=== PATIENT | female | born 1970 | race Caucasian/White ===

== ENCOUNTER 2024-02-27 08:22 | Inpatient (IN) ==
--- NOTE | 2023-12-16 15:44 | PAT Medication Instructions ---
Medication Instructions Date of Service December 16, 2023 Home Medications acetaminophen 500 mg tablet 1,000 mg PO QID PRN Pain bupropion HCl 300 mg 24 hr tablet, extended release 300 mg PO QAM buspirone 15 mg tablet 15 mg PO BID celecoxib 100 mg capsule (Celebrex) 100 mg PO BID cholecalciferol (vitamin D3) 50 mcg (2,000 unit) capsule (Vitamin D3) 100 mcg PO QAM cyanocobalamin (vitamin B-12) 1,000 mcg sublingual tablet 1,000 mcg sublingual QAM dicyclomine 20 mg tablet 20 mg PO TID PRN abdominal cramping duloxetine 20 mg capsule,delayed release 40 mg PO QAM duloxetine 60 mg capsule,delayed release 60 mg PO QAM levothyroxine 25 mcg tablet 25 mcg PO QAM omeprazole 40 mg capsule,delayed release 40 mg PO BID ondansetron 8 mg disintegrating tablet 8 mg PO TID PRN Nausea polyethylene glycol 3350 17 gram/dose oral powder (Miralax) 17 g PO QAM pregabalin 300 mg capsule 300 mg PO BID promethazine 12.5 mg tablet 12.5 mg PO TID PRN Nausea And Vomiting simvastatin 20 mg tablet 20 mg PO HS tizanidine 4 mg tablet 8 mg PO TID PRN muscle spasms trazodone 100 mg tablet 200 mg PO HS ASK your surgeon for instructions celecoxib 100 mg capsule (Celebrex) 100 mg PO BID DO NOT take the morning of surgery cholecalciferol (vitamin D3) 50 mcg (2,000 unit) capsule (Vitamin D3) 100 mcg PO QAM cyanocobalamin (vitamin B-12) 1,000 mcg sublingual tablet 1,000 mcg sublingual QAM dicyclomine 20 mg tablet 20 mg PO TID PRN abdominal cramping polyethylene glycol 3350 17 gram/dose oral powder (Miralax) 17 g PO QAM Take morning of surgery With a small sip of water, OTHERWISE NOTHING TO EAT OR DRINK AFTER MIDNIGHT: acetaminophen 500 mg tablet 1,000 mg PO QID PRN Pain (if needed) bupropion HCl 300 mg 24 hr tablet, extended release 300 mg PO QAM buspirone 15 mg tablet 15 mg PO BID duloxetine 20 mg capsule,delayed release 40 mg PO QAM duloxetine 60 mg capsule,delayed release 60 mg PO QAM levothyroxine 25 mcg tablet 25 mcg PO QAM omeprazole 40 mg capsule,delayed release 40 mg PO BID ondansetron 8 mg disintegrating tablet 8 mg PO TID PRN Nausea (if needed) pregabalin 300 mg capsule 300 mg PO BID promethazine 12.5 mg tablet 12.5 mg PO TID PRN Nausea And Vomiting (if needed) tizanidine 4 mg tablet 8 mg PO TID PRN muscle spasms (if needed) Take evening before surgery acetaminophen 500 mg tablet 1,000 mg PO QID PRN Pain (if needed) buspirone 15 mg tablet 15 mg PO BID dicyclomine 20 mg tablet 20 mg PO TID PRN abdominal cramping (if needed) omeprazole 40 mg capsule,delayed release 40 mg PO BID ondansetron 8 mg disintegrating tablet 8 mg PO TID PRN Nausea (if needed) pregabalin 300 mg capsule 300 mg PO BID promethazine 12.5 mg tablet 12.5 mg PO TID PRN Nausea And Vomiting (if needed) simvastatin 20 mg tablet 20 mg PO HS tizanidine 4 mg tablet 8 mg PO TID PRN muscle spasms (if needed) trazodone 100 mg tablet 200 mg PO HS Other Notes If you have any questions please call us at [phone] or [phone] or [phone] or [phone]
--- NOTE | 2023-12-25 09:08 | Anesthesiology Consultation ---
Date of Service December 25, 2023 Assessment & Plan (1) Encounter for pre-operative examination: Chart Review Chart Review: Acceptable Risk for Surgery (pending surgeon ordered PCP clearance ) and Patient seen in Pre Admission Testing - Awaiting PCP clearance ([facility]) (scheduled either the week of 12/29/23 or 01/05/24) Per PAT appt on 12/25/23, no recent illness/disease exposures, illness related symptoms, or recent illness/disease positive tests. Will leave to surgeon's discretion if preop Covid testing needed History Surgery Operation Date: 01/21/24 11:35 Proposed Procedures p L4-L5 Decompression and Fusion - Tramaine Hernandez DO Height/Weight Height: 5 ft 4 in Weight: 105.4 kg Allergies Allergy/AdvReac Type Severity Reaction Status Date / Time Penicillins Allergy Hives Verified 12/15/23 07:31 Medications Home Medications Medication Instructions Recorded Confirmed Last Taken acetaminophen 500 mg tablet 1,000 mg PO QID PRN Pain 12/15/23 12/15/23 Unknown bupropion HCl 300 mg 24 hr tablet, 300 mg PO QAM 12/15/23 12/15/23 Unknown extended release buspirone 15 mg tablet 15 mg PO BID 12/15/23 12/15/23 Unknown celecoxib 100 mg capsule (Celebrex) 100 mg PO BID 12/15/23 12/15/23 Unknown cholecalciferol (vitamin D3) 50 100 mcg PO QAM 12/15/23 12/15/23 Unknown mcg (2,000 unit) capsule (Vitamin D3) cyanocobalamin (vitamin B-12) 1,000 mcg sublingual QAM 12/15/23 12/15/23 Unknown 1,000 mcg sublingual tablet dicyclomine 20 mg tablet 20 mg PO TID PRN abdominal cramping 12/15/23 12/15/23 Unknown duloxetine 20 mg capsule,delayed 40 mg PO QAM 12/15/23 12/15/23 Unknown release duloxetine 60 mg capsule,delayed 60 mg PO QAM 12/15/23 12/15/23 Unknown release levothyroxine 25 mcg tablet 25 mcg PO QAM 12/15/23 12/15/23 Unknown omeprazole 40 mg capsule,delayed 40 mg PO BID 12/15/23 12/15/23 Unknown release ondansetron 8 mg disintegrating 8 mg PO TID PRN Nausea 12/15/23 12/15/23 Unknown tablet polyethylene glycol 3350 17 17 g PO QAM 12/15/23 12/15/23 Unknown gram/dose oral powder (Miralax) pregabalin 300 mg capsule 300 mg PO BID 12/15/23 12/15/23 Unknown promethazine 12.5 mg tablet 12.5 mg PO TID PRN Nausea And 12/15/23 12/15/23 Unknown Vomiting simvastatin 20 mg tablet 20 mg PO HS 12/15/23 12/15/23 Unknown tizanidine 4 mg tablet 8 mg PO TID PRN muscle spasms 12/15/23 12/15/23 Unknown trazodone 100 mg tablet 200 mg PO HS 12/15/23 12/15/23 Unknown Past Medical History Medical History Anxiety and depression Constipation Dysphagia Occasionally- only with certain foods; no issues with liquids Present >1 year- GI specialist aware- had EGD - had esophageal dilation; diagnosed with esophageal spasms - currently under observation- to follow up PRN Fibromyalgia "reason for lyrica and cymbalta" GERD (gastroesophageal reflux disease) well controlled and reflux Hx of necrotizing fasciitis taken to [place] after bowel perforation at another hospital, 2018 Hyperlipidemia Hypothyroidism Nausea and vomiting after administration of anesthetic agent Exercise / Class Metabolic Activity II 4-5 Yardwork/Stairs/Walk up hill (one flight of stairs- no chest pain or SOB) Past Surgical History Surgical History History of bowel resection History of esophagogastroduodenoscopy (EGD) History of intestinal surgery "had to be repaired due to perforation" History of laparotomy "abdomen left open after 1 surgery and then had to go back in to close everything back up" open cholecystectomy at later date History of partial hysterectomy 2008; 2018, second surgery later to "remove the ovaries, found many adhesions and my bowel was perforated" Hx of appendectomy Hx of section x2 Hx of colonoscopy Hx of tonsillectomy Past Anesthesia History No Hx of Anesthesia Complications (with exception to PONV with cholecystectomy/lysis of adhesions (longer surgery- around 6 hours)) and No Family Hx of Anesthesia Complications History of PONV No Hx of Motion Sickness and History of PONV (remote history with most recent ) Social History Smoking Status: Former smoker Smoking cigarettes per day: daily vape "is nicotine free" Smoking End Date: beginning of Nov 2023 Hx Alcohol Use: Yes Alcohol type: beer alcohol intake frequency: a few times a month Hx Substance Use: Yes substance use type: former substance user and marijuana Last Used Substance Other:: 6 months ago Review of Systems Patient denies chest pain, shortness of breath, dyspnea on exertion, cough, wheezing, palpitations. No hx of seizures, stroke, NV, apnea/snoring. No hx of blood clots or blood transfusions Physical Exam Vital Signs VITALS BP 106/62 (manually) P 61bpm TEMP 97.9 SP02 93% on RA RESP 16 Constitutional no acute distress ENMT Mouth: no TMJ clicking Thyromental Distance: > or= 3.5 Finger Breadths (3.5) Mallampati Class: I Neck neck extension not limited Respiratory normal respiratory effort; no respiratory distress Auscultation: lungs clear to auscultation bilaterally; no wheezes Cardiovascular Rate/Rhythm: regular rate and regular rhythm Heart Sounds: no murmur Vessels: no carotid bruit Musculoskeletal Spine: no pain with cervical ROM Extremities: extremities normal to inspection Psychiatric Orientation: alert Lab Results Anesthesia Preop Results Results Anesthesia Widget: WBC 5.47 K/ul (4.8-10.8) 12/25/23 Hgb 13.0 g/dl (12.0-16.0) 12/25/23 Hct 40.2 % (37.0-47.0) 12/25/23 Plt 178 K/uL (130-400) 12/25/23 Na 140 mmol/L (136-145) 12/25/23 K 5.1 mmol/L (3.5-5.1) 12/25/23 Cl 103 mmol/L (98-107) 12/25/23 CO2 35 mmol/L (21-32) H 12/25/23 BUN 23 mg/dl (6-23) 12/25/23 Creat 0.96 mg/dl (0.6-1.2) 12/25/23 Glucose Level 92 mg/dl (70-99(Fasting)) 12/25/23 PT 10.1 Seconds (9.0-12.0) 12/25/23 PTT 26 Seconds (21-31) 12/25/23 INR 0.9 (0.9-1.1) 12/25/23 Urine Color Yellow 12/25/23 Urine Appearance Cloudy (Clear) A 12/25/23 Urine pH 7.5 (4.5-7.5) 12/25/23 Urine Specific [place] 1.013 (1.000-1.030) 12/25/23 Urine Protein Negative (Negative) 12/25/23 Urine Glucose (UA) Negative (Negative) 12/25/23 Urine Ketones Negative (Negative) 12/25/23 Urine Blood Negative (Negative) 12/25/23 Urine Nitrite Positive (Negative) A 12/25/23 Urine Bilirubin Negative (Negative) 12/25/23 Urine Urobilinogen Negative (Negative) 12/25/23 Urine Leukocyte Esterase 2+ (Negative) H 12/25/23 Urine WBC (Auto) >50 /hpf (0-5) H 12/25/23 Urine RBC (Auto) 3-5 /hpf (0-2) H 12/25/23 Urine Hyaline Casts (Auto) 0-2 /lpf (0-2) 12/25/23 Urine Epithelial Cells (Auto) 0-2 /hpf (0-2) 12/25/23 Urine Bacteria (Auto) 4+ (None Seen) H 12/25/23 Blood Type A Positive 12/25/23 Antibody Screen NEGATIVE 12/25/23 Testing Laboratory Results Surgeon's office informed of UA results- will leave to surgeon's discretion on how to proceed Electrocardiogram Date: 12/25/23 Findings: + NSR @ (60bpm) Low voltage QRS Chest X-Ray Date: 12/25/23 FINDINGS: PA and lateral chest radiographs are compared to study dated 04/27/2020. The cardiomediastinal silhouette is unremarkable. There is minimal linear scarring/atelectasis in the left lower lung. The lungs and pleural spaces are otherwise clear. There is no pneumothorax. The bony thorax appears intact. Cholecystectomy clips are seen in the right upper quadrant. IMPRESSION: No active disease in the chest.
[2024-02-27] MEDS ORDERED: LIDOCAINE 2% 2 ML VIAL/AMP(20MG/ML) INFIL ONE (08:56)
[2024-02-27] MEDS ORDERED: GLYCOPYRROLATE 0.2 MG/ML VIAL ONE (08:56)
[2024-02-27] MEDS ORDERED: fentaNYL citrate PF 100 MCG/2 ML VIAL ONE ×2 (08:56→11:25)
[2024-02-27] MEDS ORDERED: ROCURONIUM BROMIDE 10 MG/ML 5 ML VIAL IV ONE (08:56)
[2024-02-27] MEDS ORDERED: ONDANSETRON INJ 2 MG/ML 2 ML VIAL ONE (08:56)
[2024-02-27] MEDS ORDERED: DEXAMETHASONE SOD INJ 4 MG/ML VIAL ONE (08:56)
[2024-02-27] MEDS ORDERED: MIDAZOLAM HCL 1 MG/ML 2ML VIAL ONE (08:56)
[2024-02-27] MEDS ORDERED: PROPOFOL IV EMULSION 10 MG/ML 20 ML VIAL IV ONE ×2 (08:56→09:01)
[2024-02-27] MEDS ORDERED: SUGAMMADEX SODIUM 200 MG/2 ML VIAL IV ONE (09:17)
[2024-02-27] MEDS: ACETAMINOPHEN 500 MG TAB PO SCH (09:57)
[2024-02-27] MEDS: GABAPENTIN 900 MG DOSE PO SCH (09:57)
[2024-02-27] MEDS: CeleBREX 200 MG CAP PO SCH (09:58)
--- NOTE | 2024-02-27 10:02 | History & Physical Bridge Note ---
Date of Service February 27, 2024 History & Physical Bridge Note I have examined the patient, reviewed the History & Physical and in the interval since the performance of the History & Physical I have noted the following changes of clinical significance: no changes noted
--- NOTE | 2024-02-27 10:03 | History & Physical Report ---
Date of Service February 27, 2024 Assessment & Plan (1) Lumbosacral spondylosis with radiculopathy: Plan: L4-L5 decompression and fusion History of Present Illness Chief Complaint: Back and bilateral leg pain Primary Care Provider: TANIA Murillo This is a 53-year-old female who presents with chronic persistent back and leg pain after failing course of nonoperative care is here for surgical intervention. Allergies Allergy/AdvReac Type Severity Reaction Status Date / Time Penicillins Allergy Hives Verified 02/27/24 09:25 Home Medications Medication Instructions Recorded Confirmed Type acetaminophen 500 mg tablet 1,000 mg PO QID PRN Pain 12/15/23 02/27/24 History bupropion HCl 300 mg 24 hr tablet, 300 mg PO QAM 12/15/23 02/27/24 History extended release buspirone 15 mg tablet 15 mg PO BID 12/15/23 02/27/24 History celecoxib 100 mg capsule (Celebrex) 100 mg PO BID 12/15/23 02/27/24 History cholecalciferol (vitamin D3) 50 100 mcg PO QAM 12/15/23 02/27/24 History mcg (2,000 unit) capsule (Vitamin D3) cyanocobalamin (vitamin B-12) 1,000 mcg sublingual QAM 12/15/23 02/27/24 History 1,000 mcg sublingual tablet dicyclomine 20 mg tablet 20 mg PO TID PRN abdominal cramping 12/15/23 02/27/24 History duloxetine 20 mg capsule,delayed 40 mg PO QAM 12/15/23 02/27/24 History release duloxetine 60 mg capsule,delayed 60 mg PO QAM 12/15/23 02/27/24 History release levothyroxine 25 mcg tablet 25 mcg PO QAM 12/15/23 02/27/24 History omeprazole 40 mg capsule,delayed 40 mg PO BID 12/15/23 02/27/24 History release ondansetron 8 mg disintegrating 8 mg PO TID PRN Nausea 12/15/23 02/27/24 History tablet polyethylene glycol 3350 17 17 g PO QAM 12/15/23 02/27/24 History gram/dose oral powder (Miralax) pregabalin 300 mg capsule 300 mg PO BID 12/15/23 02/27/24 History promethazine 12.5 mg tablet 12.5 mg PO TID PRN Nausea And 12/15/23 02/27/24 History Vomiting simvastatin 20 mg tablet 20 mg PO HS 12/15/23 02/27/24 History tizanidine 4 mg tablet 8 mg PO TID PRN muscle spasms 12/15/23 02/27/24 History trazodone 100 mg tablet 200 mg PO HS 12/15/23 02/27/24 History Past Med/Surg History Problem List (Updated 02/27/24 @ 10:02 by Tramaine Hernandez DO) Lumbosacral spondylosis with radiculopathy Medical History Anxiety and depression Constipation Dysphagia Occasionally- only with certain foods; no issues with liquids Present >1 year- GI specialist aware- had EGD - had esophageal dilation; diagnosed with esophageal spasms - currently under observation- to follow up PRN Fibromyalgia "reason for lyrica and cymbalta" GERD (gastroesophageal reflux disease) well controlled and reflux Hx of necrotizing fasciitis taken to [place] after bowel perforation at another hospital, 2018 Hyperlipidemia Hypothyroidism Nausea and vomiting after administration of anesthetic agent Surgical History History of bowel resection History of esophagogastroduodenoscopy (EGD) History of intestinal surgery "had to be repaired due to perforation" History of laparotomy "abdomen left open after 1 surgery and then had to go back in to close everything back up" open cholecystectomy at later date History of partial hysterectomy 2008; 2018, second surgery later to "remove the ovaries, found many adhesions and my bowel was perforated" Hx of appendectomy Hx of section x2 Hx of colonoscopy Hx of tonsillectomy Social History (System 11/25/23 @ 13:26 by Iris Otoole) Smoking Status: Former smoker Tobacco Type: E-cigarettes / Vaping Cigarettes Per Day: daily vape "is nicotine free"; Smoking End Date: nov 2023; Second Hand Exposure: No; Do You Dip or Chew Tobacco: No; Tobacco Cessation Education Requested by Patient: No Hx Alcohol Use: Yes Alcohol type: beer Hx Substance Use: No Preferred Language: Albanian Communication Ability: Effective Microfilming Document Preparer Required: No Beliefs That Will Affect Care: None Current Living Situation: Spouse and Family Other Information That Helps Us Care for You: No Feels Safe at Home: Yes Safety Concerns: Feels Safe At This Time Assistive Devices: None Physical Exam Physical Exam: Patient is alert and oriented heart regular rhythm Lungs clear Results & Data Results & Data Vital Signs (Past 12 Hours) Vital Signs Temp Pulse Resp BP Pulse Ox O2 Del Method 02/27/24 09:34 36.9 C 55 L 20 123/68 92 Room Air
[2024-02-27] MEDS: LR 60ML/HR IV SCH (10:05)
[2024-02-27] MEDS: LR 15ML/HR IV SCH (10:05)
[2024-02-27] MEDS: SODIUM CHLORIDE 0.9% 1,000 ML IV SCH (10:06)
[2024-02-27] MEDS: SCOPOLAMINE 1 MG/72 HR TDSY PATCH TD ONE ×2 (10:19)
[2024-02-27] MEDS: ceFAZolin 2,000 MG/15 ML IV PUSH IV ONE (10:20)
[2024-02-27] MEDS: ceFAZolin 2000MG 2,000 MG/15 ML SYR IV ONE (10:24)
[2024-02-27] MEDS: ceFAZolin 330 MG/ML 1 GM VIAL ONE (10:24)
[2024-02-27] MEDS: ALBUT/IPRATROP 3MG/0.5MG NEB 3 ML VIAL NEB STA (10:40)
[2024-02-27] MEDS: FLOSEAL HEMOSTATIC MATRIX 10ML TOP ONE (12:13)
[2024-02-27] MEDS: BUPIVACAINE/EPINEPHRINE 0.25% 1:200,000 30 ML VIAL ONE (12:13)
--- NOTE | 2024-02-27 12:21 | Operative Report ---
Post Operative Report Pre & Post Diagnosis Operation Date: 02/27/24 10:35 Pre-Op Diagnosis: Lumbar spondylosis with radiculopathy Lumbar degenerative disc disease with neuroforaminal stenosis Post-Op Diagnosis: Same I identified the patient and participated in the time-out.: Yes Procedure Operation Date: 02/27/24 10:35 Actual Procedures #1 lumbar decompression bilateral medial facetectomies and foraminotomies L4-L5. #2 posterior spinal fusion L4-L5. #3 placement posterior instrumentation L4-5. #4 interbody fusion L4-L5. #5 position of Spira 13 x 26 mm x 2 at L4-5. #6 placement locally harvested morselized autograft posterior gutters. #7 placement infuse collagen sponge, with Koros in the posterior lateral gutters and os design bone graft and by space. #8 application of versa wrap over the exposed dura. Surgeon Tramaine Hernandez, DO Book Coverer Flores Larson Estimated Blood Loss 450 Findings See Below Patient is 5 foot 4 weighing over 110 kg and a BMI in excess of 41. Patient's body mass did contribute to significant technical difficulty with positioning exposure and the procedure itself. This had at least 50% increased operative time. I am recommending a modifier 22. Specimens None Indications This is a 53-year-old female presents problems diagnosis of failing course of nonoperative care is here for surgical invention. Description of Procedure Patient was met with identified informed consent obtained. Patient was then taken to the operative suite underwent patient placed in a prone position on the [place] table top Philip frame. All bony promises well-padded I suspected to ensure no external pressure placed upon the. This point lumbar spine was prepped and draped in sterile fashion. Sharp dissection with the assistance of Bovie cautery from down to and exposing the lamina transverse processes of L4 and L5 bilaterally. From caudal to cephalad fashion complete laminectomy of L5 was performed including bilateral medial facetectomies and foraminotomies addressing severe spinal stenosis. Pedicle screws then placed in L4-5 bilaterally with assistance of fluoroscopy and appropriate size bobby placed. By way of transforaminal approach on the right discectomy of of L4-5 was performed endplates guarded to subcortical bleeding bone and a 13 x 26 mm Spira cage filled with os design bone graft tapped in position. Then proceeded to the left transforaminal region at L4-5. Again discectomy performed endplates guarded to subcortical bleeding bone and a second 13 x 26 mm spiral cage filled with os design bone graft tapped in position. The rods were then compressed locked in final position bilaterally. The transverse processes of L4-L5 burred to subcortical bleeding bone. Infuse collagen sponge bath Koros and local autograft was placed in the posterior lateral gutters. 15 round ELIE drain inserted. The incision was then closed with 1 Vicryl the fascia 2-0 Vicryl subcutaneously and 4 Monocryl for final skin closure. Steri-Strips sterile dressing placed. Patient waken taken to PACU stable condition. Please note spinal cord monitoring procedure no changes noted. Lastly Flores Larson was present out the entire procedure and all the patient positioning complex portion of the surgery and fascial closure. I attest to the content of the Intraoperative Record and any orders documented therein. Any exceptions are noted below.
--- NOTE | 2024-02-27 12:44 | Fluoroscopy Report ---
FL lumbar spine 2-3V CLINICAL HISTORY: L4-L5 DECOMPRESSION AND FUSION COMPARISON STUDY: None FLUOROSCOPY TIME: 15 seconds FLUOROSCOPY IMAGES: 2 EXPOSURE DOSE: 16.39 mGy FINDINGS: Posterior interbody bobby and screw fusion with discectomy noted at what is labeled the L4-L5 level. Hardware appears intact. No unexpected opaque foreign bodies. IMPRESSION: Fluoroscopic assistance as above. ACT 112: Negative or not required by law. Electronically signed by: Ranulfo Goldberg M.D. 02/27/2024 12:42 PM
[2024-02-27] MEDS ORDERED: ePHEDrine sulfate 50 MG/ML AMP IV PRN (13:00)
[2024-02-27] MEDS: fentaNYL citrate PF 100 MCG/2 ML VIAL IV PRN (13:00)
[2024-02-27] MEDS ORDERED: ATROPINE SULFATE 0.1 MG/ML 10ML SYR IV PRN (13:00)
[2024-02-27] MEDS ORDERED: ONDANSETRON INJ 2 MG/ML 2 ML VIAL IV PRN ×2 (13:00→14:36)
[2024-02-27] MEDS: HYDROmorphone INJ 1 MG/ML SYRINGE IV PRN ×2 (13:18→14:51)
--- NOTE | 2024-02-27 13:54 | Anesthesiology Progress Note ---
Date of Service February 27, 2024 Anesthesia Post Procedure Vital Signs Vital Signs: Temp Pulse Pulse Resp BP Pulse Ox O2 Del Method 02/27/24 13:40 77 12 123/69 100 Nasal Cannula 02/27/24 13:30 36.8 C 74 16 114/63 98 Nasal Cannula 02/27/24 13:20 78 12 110/64 96 Nasal Cannula 02/27/24 13:10 76 12 109/59 L 97 Oxymask 02/27/24 13:00 81 14 108/66 93 Oxymask 02/27/24 12:50 82 16 116/62 95 Oxymask 02/27/24 12:40 36.1 C L 90 16 128/71 94 Oxymask 02/27/24 10:40 74 16 95 Room Air 02/27/24 09:34 36.9 C 55 L 20 123/68 92 Room Air O2 Flow Rate 02/27/24 13:40 3 02/27/24 13:30 3 02/27/24 13:20 3 02/27/24 13:10 4 02/27/24 13:00 6 02/27/24 12:50 11 02/27/24 12:40 11 02/27/24 10:40 02/27/24 09:34 Pain Intensity Bilateral Lower Back: Pain Intensity: 4 Transfer of Care Handoff Completed per policy Notes Mental Status: alert / awake / arousable and participated in evaluation Patient Amnestic to Procedure: Yes Nausea / Vomiting: adequately controlled Pain: adequately controlled Airway Patency, RR, SpO2: stable & adequate BP & HR: stable & adequate Hydration State: stable & adequate Anesthetic Complications: no major complications apparent and Pt Satisfied with anesthetic care
[2024-02-27] MEDS ORDERED: ONDANSETRON 4 MG OD TAB PO PRN (14:36)
[2024-02-27] MEDS ORDERED: PROMETHAZINE 12.5 MG/50.5 ML BAG IV PRN (14:36)
[2024-02-27] MEDS ORDERED: MAGNESIUM HYDROXIDE SUSP 30 ML UDC PO PRN (14:36)
[2024-02-27] MEDS ORDERED: ALUMINUM/MAGNESIUM SUSP 30 ML UDC PO PRN (14:36)
[2024-02-27] MEDS ORDERED: DO NOT ADMINISTER FLU VACCINE PRN (14:36)
[2024-02-27] MEDS ORDERED: PROMETHAZINE HCL 25 MG TAB PO PRN (14:36)
[2024-02-27] MEDS ORDERED: FAMOTIDINE 20 MG TAB PO PRN (14:36)
[2024-02-27] MEDS ORDERED: DO NOT ADMINISTER PNEUMOCOCCAL VACCINE PRN (14:36)
[2024-02-27] MEDS ORDERED: ACETAMINOPHEN 1,000 MG/100 ML VIAL IV PRN (14:36)
[2024-02-27] MEDS ORDERED: METOCLOPRAMIDE HCL INJ 5 MG/ML 2 ML VIAL IV PRN (14:36)
[2024-02-27] MEDS ORDERED: hydrOXYzine HCl 25 MG TAB PO PRN (14:36)
[2024-02-27] MEDS ORDERED: SOD PHOSPHATE/SOD BIPHOSPHATE ENEMA 132 ML BTL PR PRN (14:36)
[2024-02-27] MEDS ORDERED: LORazepam 0.5 MG TAB PO PRN (14:36)
[2024-02-27] MEDS ORDERED: NALOXONE HCL 0.4 MG/1 ML VIAL/CARP IV PRN (14:36)
[2024-02-27] MEDS ORDERED: bisacodyL 10 MG SUPP PR PRN (14:36)
[2024-02-27] MEDS ORDERED: LORazepam 2 MG/1 ML VIAL IV PRN (14:36)
[2024-02-27] MEDS ORDERED: diphenhydrAMINE Capsule 25 MG CAP PO PRN (14:36)
[2024-02-27] MEDS ORDERED: ONDANSETRON 8MG OD TAB PO PRN (14:36)
[2024-02-27] MEDS ORDERED: DICYCLOMINE HCL 20 MG TAB PO PRN (14:36)
[2024-02-27] MEDS: fentaNYL citrate PF 100 MCG/2 ML VIAL ONE (14:37)
[2024-02-27] MEDS: CHECK SCOPOLAMINE PATCH PLACEMENT SCH (15:55)
--- NOTE | 2024-02-27 16:23 | Hospitalist Consultation ---
Date of Consultation February 27, 2024 Assessment & Plan (1) Lumbosacral spondylosis with radiculopathy: S/p L4/L5 decompression and fusion 02/26 - Pain management, VTE PPx, and bowel regimen per ortho team - pre-op H&H stable, renal function stable, EKG NSR - AM CBC and BMP - PT to eval (2) Hypoxia: postoperatively hypoxia requiring 4L O2 via NC likely secondary to anesthetic agents - incentive spirometry Q1H - wean O2 as tolerated - will hold home trazodone tonight 02/26 - to resume QPM 02/27 (3) Anxiety and depression: chronic - continue home Wellbutrin and Buspar - holding trazodone 02/26 as above (4) GERD (gastroesophageal reflux disease): Chronic - continue home PPI and Bentyl prn (5) Fibromyalgia: Chronic - continue home Lyrica and Cymbalta (6) Hypothyroidism: Chronic - continue home Synthroid Plan VTE ppx: SCDs and TEDs Diet: advance as tolerated - clears for now Dispo: med/surg; PT to eval Supervising Physician Co-Signing Physician Notes Patient seen and examined, chart reviewed, case discussed with Kayleen Salazar PA-C and I agree with the assessment and plan as above except as otherwise noted Labs and images reviewed Jeri is a 53-year-old female with a past medical history of GERD, anxiety/depression, fibromyalgia, hypothyroidism who presented for L4/L5 decompression and fusion. We are consulted for postoperative management of medical comorbidities. Postoperatively she is normotensive, she is not tachycardic, she is on 4 L of nasal cannula. Patient is with hypoxia requiring 4 L nasal cannula, desaturating in the mid 90s on this. Does not have a underlying history of lung disease. Suspect atelectatic versus with some sedation following anesthesia; continue incentive spirometry. Lungs are diminished but clear. If oxygen requirement persist and is not improving then obtain chest x-ray morning of 02/27. Tyson is seen on reassessment she is ambulating from the bathroom. She reports the radicular pain that she had preoperatively has resolved, however she does have some uncomfortable pain at her incision site. ELIE drain is in place draining about a 50 to 100 cc of sanguinous material. She is still somewhat sleepy postanesthesia but answers questions appropriately. Labs ordered. History of Present Illness Reason for Consultation: routine consult Requesting Physician: Dr. Hernandez Attending Physician: Tramaine Hernandez, History of Present Illness Patient is being seen as a postop consult, she had an L4/L5 decompression and fusion 02/26. She has a past medical history of anxiety, depression, GERD, fibromyalgia, hyperlipidemia, and hypothyroidism. She was seen at bedside and lethargic post-operatively; on 4L O2 NC. She responded to verbal stimuli and denied pain, n/v, dyspnea, cough, chest pain, abd pain, numbness, tingling. No bowel movement or urination post-operatively. She has not yet had a meal but is to advance diet as tolerated. Allergies Allergy/AdvReac Type Severity Reaction Status Date / Time Penicillins Allergy Hives Verified 02/27/24 09:25 Home Medications Medication Instructions Recorded Confirmed Type acetaminophen 500 mg tablet 1,000 mg PO QID PRN Pain 12/15/23 02/27/24 History bupropion HCl 300 mg 24 hr tablet, 300 mg PO QAM 12/15/23 02/27/24 History extended release buspirone 15 mg tablet 15 mg PO BID 12/15/23 02/27/24 History celecoxib 100 mg capsule (Celebrex) 100 mg PO BID 12/15/23 02/27/24 History cholecalciferol (vitamin D3) 50 100 mcg PO QAM 12/15/23 02/27/24 History mcg (2,000 unit) capsule (Vitamin D3) cyanocobalamin (vitamin B-12) 1,000 mcg sublingual QAM 12/15/23 02/27/24 History 1,000 mcg sublingual tablet dicyclomine 20 mg tablet 20 mg PO TID PRN abdominal cramping 12/15/23 02/27/24 History duloxetine 20 mg capsule,delayed 40 mg PO QAM 12/15/23 02/27/24 History release duloxetine 60 mg capsule,delayed 60 mg PO QAM 12/15/23 02/27/24 History release levothyroxine 25 mcg tablet 25 mcg PO QAM 12/15/23 02/27/24 History omeprazole 40 mg capsule,delayed 40 mg PO BID 12/15/23 02/27/24 History release ondansetron 8 mg disintegrating 8 mg PO TID PRN Nausea 12/15/23 02/27/24 History tablet polyethylene glycol 3350 17 17 g PO QAM 12/15/23 02/27/24 History gram/dose oral powder (Miralax) pregabalin 300 mg capsule 300 mg PO BID 12/15/23 02/27/24 History promethazine 12.5 mg tablet 12.5 mg PO TID PRN Nausea And 12/15/23 02/27/24 History Vomiting simvastatin 20 mg tablet 20 mg PO HS 12/15/23 02/27/24 History tizanidine 4 mg tablet 8 mg PO TID PRN muscle spasms 12/15/23 02/27/24 History trazodone 100 mg tablet 200 mg PO HS 12/15/23 02/27/24 History Patient History Medical History Anxiety and depression Constipation Dysphagia Occasionally- only with certain foods; no issues with liquids Present >1 year- GI specialist aware- had EGD - had esophageal dilation; di agnosed with esophageal spasms - currently under observation- to follow up PRN Fibromyalgia "reason for lyrica and cymbalta" GERD (gastroesophageal reflux disease) well controlled and reflux Hx of necrotizing fasciitis taken to [place] after bowel perforation at another hospital, 2018 Hyperlipidemia Hypothyroidism Nausea and vomiting after administration of anesthetic agent Surgical History History of bowel resection History of esophagogastroduodenoscopy (EGD) History of intestinal surgery "had to be repaired due to perforation" History of laparotomy "abdomen left open after 1 surgery and then had to go back in to close everything back up" open cholecystectomy at later date History of partial hysterectomy 2008; 2018, second surgery later to "remove the ovaries, found many adhesions and my bowel was perforated" Hx of appendectomy Hx of section x2 Hx of colonoscopy Hx of tonsillectomy Social History (System 11/25/23 @ 13:26 by Iris Otoole) Smoking Status: Former smoker Tobacco Type: E-cigarettes / Vaping Cigarettes Per Day: daily vape "is nicotine free"; Smoking End Date: nov 2023; Second Hand Exposure: No; Do You Dip or Chew Tobacco: No; Tobacco Cessation Education Requested by Patient: No Hx Alcohol Use: Yes Alcohol type: beer Hx Substance Use: No Preferred Language: Latvian Communication Ability: Effective Logistics And Planning Manager Required: No Beliefs That Will Affect Care: None Current Living Situation: Spouse and Family Other Information That Helps Us Care for You: No Feels Safe at Home: Yes Safety Concerns: Feels Safe At This Time Assistive Devices: None Review of Systems Review of Systems: see HPI Physical Exam Physical Exam: The patient is lethargic, responds to verbal stimuli, well developed and well nourished, normocephalic and atraumatic, in no acute distress. Non-toxic appearing. HEENT- EOMI, mucous membranes moist. Hearing grossly intact. Heart-normal S1 and S2. No murmurs, rubs or gallops. Lungs-clear bilaterally, no respiratory distress, no accessory muscle use. 4L O2 via NC. Abdomen-normal bowel sounds and soft. No ascites noted. Non-tender. No ecchymosis. Extremities- no clubbing, cyanosis, or edema. Results & Data Results & Data Vital Signs (Past 12 Hours) Vital Signs Temp Pulse Pulse Resp BP Pulse Ox O2 Del Method 02/27/24 15:16 36.4 C L 89 18 118/77 94 Nasal Cannula 02/27/24 14:57 36.6 C 81 16 114/78 96 Nasal Cannula 02/27/24 14:39 36.6 C 80 18 116/76 96 Nasal Cannula 02/27/24 14:00 36.6 C 75 16 112/67 99 Nasal Cannula 02/27/24 13:50 76 12 114/61 96 Nasal Cannula 02/27/24 13:40 77 12 123/69 100 Nasal Cannula 02/27/24 13:30 36.8 C 74 16 114/63 98 Nasal Cannula 02/27/24 13:20 78 12 110/64 96 Nasal Cannula 02/27/24 13:10 76 12 109/59 L 97 Oxymask 02/27/24 13:00 81 14 108/66 93 Oxymask 02/27/24 12:50 82 16 116/62 95 Oxymask 02/27/24 12:40 36.1 C L 90 16 128/71 94 Oxymask 02/27/24 10:40 74 16 95 Room Air 02/27/24 09:34 36.9 C 55 L 20 123/68 92 Room Air O2 Flow Rate 02/27/24 15:16 4 02/27/24 14:57 4 02/27/24 14:39 02/27/24 14:00 3 02/27/24 13:50 3 02/27/24 13:40 3 02/27/24 13:30 3 02/27/24 13:20 3 02/27/24 13:10 4 02/27/24 13:00 6 02/27/24 12:50 11 02/27/24 12:40 11 02/27/24 10:40 02/27/24 09:34 PG Care Time/CCT Total # of Minutes Spent Total Time Spent with Patient: Total time spent is greater than 50% in coordination of care (as documented) at patient's floor/unit and/or counseling patient: Coding Level of Care Code 19079 IN/OBS CONSULT LVL 4,60M Diagnoses Lumbosacral spondylosis with radiculopathy M47.27 Hypoxia R09.02 Anxiety and depression F41.9; F32.A GERD (gastroesophageal reflux disease) K21.9 Fibromyalgia M79.7 Hypothyroidism E03.9
[2024-02-27] MEDS: CLINDAMYCIN/D5W 600 MG/50 ML BAG IV SCH (17:52)
[2024-02-27] MEDS: oxyCODONE HCL IR 5 MG TAB (IMMEDIATE RELEASE) PO PRN (17:52)
[2024-02-27] MEDS: SIMVASTATIN 20 MG TAB PO SCH (20:28)
[2024-02-27] MEDS: PREGABALIN 150 MG CAP PO SCH (20:28)
[2024-02-27] MEDS: DOCUSATE SODIUM/SENNA 50/8.6MG TAB PO SCH (20:28)
[2024-02-27] MEDS: PANTOprazole 40 MG TAB PO SCH (20:28)
[2024-02-27] MEDS: busPIRone 15 MG TAB PO SCH (20:28)
[2024-02-27] MEDS ORDERED: traZODone HCL 100 MG TAB PO SCH (21:00)
[2024-02-28] MEDS: tiZANidine HCL 4 MG TABLET PO PRN (04:27)
[2024-02-28] MEDS: POLYETHYLENE (MIRALAX) 17 GM PACK PO SCH (06:20)
[2024-02-28 07:14] LABS: Basophils # (auto) 0.02 K/uL (0.00-0.20); Basophils % (auto) 0.2 %; Eosinophils # (auto) 0.01 K/uL (0.00-0.50); Eosinophils % (auto) 0.1 %; Hematocrit (blood only) 31.6 % (37.0-47.0); Hemoglobin 10.4 g/dl (12.0-16.0); Immature Granulocytes # (auto) 0.07 K/uL (0.01-0.20); Immature Granulocytes % (auto) 0.8 %; Lymphocytes # (auto) 1.41 K/uL (1.20-3.40); Lymphocytes % (auto) 15.9 %; Mean Corpuscular Hemoglobin 31.5 pg (25.0-34.0); Mean Corpuscular Hgb Conc 32.9 g/dL (32.0-36.0); Mean Corpuscular Volume 95.8 fL (80.0-100.0); Mean Platelet Volume 11.5 fL (9.4-12.4); Monocytes # (auto) 0.88 K/uL (0.11-0.59); Monocytes % (auto) 9.9 %; Neutrophils # (auto) 6.47 K/uL (1.40-6.50); Neutrophils % (auto) 73.1 %; Platelet Count 182 K/uL (130-400); RDW Coefficient of Variation 13.1 % (11.5-14.5); RDW Standard Deviation 45.1 fL (36.4-46.3); White Blood Count 8.86 K/ul (4.8-10.8)
[2024-02-28 07:37] LABS: BUN Creatinine Ratio 18.4 (10-20); Calcium 8.9 mg/dl (8.6-10.3)
[2024-02-28] MEDS: DULoxetine HCL 60 MG CAP PO SCH (07:56)
[2024-02-28] MEDS: CYANOCOBALAMIN (B-12) 500 MCG TABLET PO SCH (07:56)
[2024-02-28] MEDS: ACETAMINOPHEN 500 MG TAB PO PRN (07:56)
[2024-02-28] MEDS: LEVOTHYROXINE SODIUM 25 MCG TABLET PO SCH (07:57)
[2024-02-28] MEDS: DULoxetine HCL 20 MG CAP PO SCH (07:57)
[2024-02-28] MEDS: dexAMETHasone 6 MG in SYRINGE 0 ML IV SCH (07:57)
[2024-02-28] MEDS: buPROPion XL 300 MG TABCR PO SCH (07:57)
[2024-02-28] MEDS: CHOLECALCIFEROL 25 MCG (1000 UNITS) TAB PO SCH (07:58)
--- NOTE | 2024-02-28 08:33 | Orthopedic Progress Note ---
Date of Service February 28, 2024 Assessment & Plan (1) Lumbosacral spondylosis with radiculopathy: Plan: Tyson is postoperative day 1 status post lumbar decompression and fusion of L4- 5. She start physical therapy today. DVT prophylaxis is in the form teds and SCDs. Continue with pain control. Maintain ELIE drain. Anticipate discharge home within the next 24 to 48 hours. Admission and Anticipated Discharge Date Admission Date: February 27, 2024 Subjective Jeri is postoperative day 1 status post lumbar decompression and fusion of L4-5. Pain is controlled. ELIE drain output last shift was 90 cc. H&H this morning are 10.4 and 31.6 respectively. No other complaints Review of Systems Review of Systems: All systems reviewed & are unremarkable except as noted in HPI & below Physical Exam Physical Exam: Laying in bed in no acute distress Alert and oriented x 3 Lumbar dressing is clean dry and intact with functioning ELIE drain Strength intact bilateral lower extremities Results & Data Vital Signs (Past 12 Hours) Vital Signs Temp Pulse Resp BP Pulse Ox O2 Del Method O2 Flow Rate 02/28/24 07:32 36.5 C 86 20 121/82 96 Nasal Cannula 1 02/28/24 04:00 36.7 C 86 14 100/66 96 Nasal Cannula 2 02/28/24 00:55 36.7 C 76 14 118/76 96 Nasal Cannula 2 02/27/24 21:30 Nasal Cannula 2
[2024-02-28] MEDS ORDERED: DULoxetine HCL 20 MG CAP PO SCH (09:00)
[2024-02-28] MEDS: traMADol HCL 50 MG TABLET PO PRN (09:32)
[2024-02-28] MEDS: traZODone HCL 100 MG TAB PO SCH (20:22)
--- NOTE | 2024-02-29 10:34 | Orthopedic Progress Note ---
Date of Service February 29, 2024 Assessment & Plan (1) Lumbosacral spondylosis with radiculopathy: Plan: Patient is struggling with back pain but it is improving. She is tolerating physical therapy. ELIE drain decreasing appropriately. Will continue physical th erapy and possible discharge home tomorrow. Admission and Anticipated Discharge Date Admission Date: February 27, 2024 Subjective Back pain controlled leg pain improved tolerating physical therapy Physical Exam Physical Exam: Patient is currently in bed. Good strength testing. Results & Data Vital Signs (Past 12 Hours) Vital Signs Temp Pulse Resp BP Pulse Ox O2 Del Method O2 Flow Rate 02/29/24 07:46 Nasal Cannula 2 02/29/24 07:00 36.8 C 61 16 107/66 97 Nasal Cannula 2 Queries Orthopedic Spine Obesity: Yes
[2024-02-29] MEDS: HYDROmorphone INJ 0.5 MG/0.5 ML SYR IV PRN (19:29)
[2024-03-01 07:24] VITALS: BP 127/75; RESP 18; TEMP 98.4; O2SAT 97
--- NOTE | 2024-03-01 09:36 | Discharge Summary ---
Date of Service March 01, 2024 Admission HPI Per Admitting Provider This is a 53-year-old female who presents with chronic persistent back and leg pain after failing course of nonoperative care is here for surgical intervention. Principal Diagnosis Lumbar spinal stenosis with radiculopathy Discharge Data Allergies Allergy/AdvReac Type Severity Reaction Status Date / Time Penicillins Allergy Hives Verified 02/27/24 09:25 Consultations 02/27/24 14:36 Consult Hospitalist Routine Procedures Performed Operation Date: 02/27/24 10:35 Actual Procedures p L4-L5 Decompression and Fusion, Spinal Cord Monitoring(Not Applicable) - Tramaine Hernandez DO Ordered Studies 02/27/24 10:35 [place] lumbar spine 2-3V Routine Hospital Course (1) Lumbosacral spondylosis with radiculopathy: This is a 50--year-old patient with lumbar decompression fusion tolerated as well as taken orthopedic for postoperative open postop patient progressed appropriately marked improvement of her leg symptoms. ELIE drain decreasing appropriately. Excellent strength testing. Subsidy discharged home. Discharge orders instructions from the chart for further review. Total Time Total Time Spent Total Time Spent (In Minutes): 20 minutes Discharge Plan Discharge Items Patient Disposition: Home - Self-Care Reason For Visit: Spinal Stenosis of Lumbar Region with Radiculopath Discharge Diagnosis: lumbar stenosis Activity: As commented below Non-emergency contact: Primary Care Provider Call non-emergency contact if: you have any medication questions Follow-up/Referrals: Mariann Goldstein CRNP [Primary Care Provider] - Diet: Regular Addtl Attending Provider Instructions: ACTIVITY RECOMMENDATIONS: SELF CARE INSTRUCTIONS AFTER THORACIC/LUMBAR FUSIONS 1. You may walk to your tolerance. It is good exercise for your legs and back. Expect some back and intermittent leg aches and pains. 2. You may perform "counter-top" level activities (make a sandwich, marcelo with a project, etc.). 3. No bending or lifting of more than 10 pounds or back twisting of any nature (roll like a log when turning in bed). 4. You may ride in a car for 20-30 minutes at a time. No driving until after your first visit with your doctor. 5. Frequent changes of position and restricting sitting to 30 minutes at a time will help limit the amount of back spasms and stiffness you may experience. 6. You may discontinue the use of ambulatory aids (cane, crutches, etc.) once your strength and confidence allow. 7. You may sterile processing tech the shower and let water strike your incision when you arrive home at least once daily. Do not take a tub bath, sit in a hot tub or go into a swimming pool until after your first recheck in the office. 8. You may resume previous diet. SPECIAL CARE INSTRUCTIONS: VERY IMPORTANT TO READ AND REVIEW A. Your surgical incision has been closed with a cosmetic suture under the skin that will dissolve in about 6 weeks. In 14 days, you can use a pair of clean scissors and cut the suture that is left outside of the skin at the ends of your incision. 1. The small skin tapes can be removed 7 days after surgery if they have not fallen off by that point. 2. You may keep the wound open to air as much as possible to promote healing after post-op day number 5 unless told otherwise by your doctor. 3. If you think the wound looks like it is becoming infected (redness or worsening drainage) and/or you are experiencing fever, chill or worsening back pain and muscle spasms, contact the office so that we may evaluate you as soon as possible. B. Complications are uncommon, but please contact us if you have any signs or symptoms of: 1. wound infection (fever higher than 102.5 degrees F, redness, separation of wound, drainage, or increasing pain from the incision) 2. blood clots in legs (pain, swelling, redness and warmth in legs) 3. urinary tract infection (fever higher than 102.5 degrees F, burning upon urination or increased frequency of urination) 4. nerve problems (inability to walk on your toes or heels, numbness, loss of bowel or bladder control) 5. any other symptoms that concern you C. Please call the office at if you have any concerns or questions about your operation or recovery. D. No smoking! Smoking drastically decreases the chance of a solid fusion. E. Do not take any anti-inflammatory medications (Indocin, Advil, Motrin, Aspirin, Naprosyn, etc.) as these may inhibit the chance of a solid fusion. Tylenol is okay to take for pain. MANAGING PAIN AFTER SPINAL SURGERY 1. Narcotic medication is intended for short-term use and will be provided for surgical pain. Surgical pain usually lasts for a period of 4-6 weeks. Narcotic medication includes Percocet, Vicodin, Darvocet, Tylenol #3 or Lortab. 2. Longer-term pain is more appropriately treated with non-narcotic medication such as Tylenol ES. 3. Muscle spasm is not appropriately treated with narcotics. Muscle relaxers such as Soma, Flexeril or Skelaxin can be used along with Tylenol ES. 4. Remember that we all live with some "aches and pains". This is not unusual or uncommon after an injury or as we get older. a. Back pain is expected and may include muscle spasms for 4 to 6 weeks after surgery. The pain should gradually improve. If the pain worsens for no apparent reason, please contact the office. b. Intermittent leg pain may also be experienced and should not be concerned about unless it worsens for no apparent reason. If so, please contact the office. 5. We will provide appropriate medication within the normal guidelines of their prescribed use. We will also be very cautious and aware of potential abuse and extended duration of patients' medication needs. a. Pain medications are for your comfort and to assist with sleep and rest so that the tissue can heal. They are not provided in order to return to normal activity and should not be used through the day. To do so or worsening pain at night can result from ongoing tissue damage and development of tolerance to the prescribed medicine. 6. Please allow 2-3 days to process refills. Prescriptions will not be mailed but must be picked up at the office. FOLLOW UP VISIT: Keep your scheduled follow-up appointment. Any questions, please call the office at . Pending Studies at Discharge: No Stand-Alone Forms: [facility], Smoking Cessation Medications and DC Order Prescriptions: New tramadol 50 mg tablet 50 mg PO Q6H PRN (Reason: pain, moderate) Qty: 30 0RF oxycodone 5 mg tablet 5 mg PO Q6H PRN (Reason: pain) Qty: 30 0RF Continued tizanidine 4 mg Tablet 8 mg PO TID PRN (Reason: muscle spasms) promethazine 12.5 mg Tablet 12.5 mg PO TID PRN (Reason: Nausea And Vomiting) omeprazole 40 mg Capsule,Delayed Release(Dr/Ec) 40 mg PO BID acetaminophen [Tylenol Ex Str Rapid Release] 500 mg Tablet 1,000 mg PO QID PRN (Reason: Pain) ondansetron 8 mg Tablet,Disintegrating 8 mg PO TID PRN (Reason: Nausea) levothyroxine 25 mcg Tablet 25 mcg PO QAM trazodone 100 mg Tablet 200 mg PO HS dicyclomine 20 mg Tablet 20 mg PO TID PRN (Reason: abdominal cramping) simvastatin 20 mg Tablet 20 mg PO HS cyanocobalamin (vitamin B-12) [Vitamin B-12] 1,000 mcg Tablet, Sublingual 1,000 mcg SUBLINGUAL QAM polyethylene glycol 3350 [Miralax] 17 gram/dose Powder 17 g PO QAM celecoxib [Celebrex] 100 mg Capsule 100 mg PO BID buspirone 15 mg Tablet 15 mg PO BID bupropion HCl 300 mg Tablet Extended Release 24 Hr 300 mg PO QAM duloxetine 20 mg Capsule,Delayed Release(Dr/Ec) 40 mg PO QAM Patient Comments: only 1 20mg QAM currently duloxetine 60 mg Capsule,Delayed Release(Dr/Ec) 60 mg PO QAM pregabalin 300 mg Capsule 300 mg PO BID cholecalciferol (vitamin D3) [Vitamin D3] 50 mcg (2,000 unit) Capsule 100 mcg PO QAM Discharge Orders: Discharge Order (Routine); Ordered 03/01/24 Ordered By: Tramaine Hernandez Admission Data Admit Date/Time: 02/27/24 12:24 Attending Provider: Tramaine Hernandez Admit Provider: Tramaine Hernandez Primary Care Provider: Mariann Goldstein Other Providers: Cristiano Ferguson
[2024-03-01 09:50] VITALS: PULSE 65
== END 2024-03-01 14:48 | disposition home or self-care (01) | DRG 402 ==
LOC: ASU 08:22 → 3E 12:24